=== PATIENT | female | born 1950 | race Caucasian/White ===

== ENCOUNTER → 2016-11-30 | Outpatient (CLI) | payer OTHER ==
--- NOTE | 2016-11-30 13:41 | DX ---
DEXA Bone Mineral Densitometry Clinical Indications: Postmenopausal, history of thoracic spinal tumor, screening for osteoporosis Comparison: None Technique: Bone Mineral Densitometry (BMD) by [employer] X-Ray Absorptiometry (DEXA) was performed utilizing the [employer] scanner. The lumbar spine was evaluated in the AP projection. The bilat eral hips and forearm were evaluated in the AP projection. Vertebral fracture assessment was also pe rformed. AP Lumbar Spine: The L1, L2, L3 and L4 vertebral bodies were evaluated. BMD: 1.448 gm/cm2 T-score: 2.0 SD Z-score: 2.9 SD AP Left Hip: Neck BMD: 1.085 gm/cm2 T-score: 0.3 SD Z-score: 1.4 SD AP Right Hip: Neck BMD: 1.125 gm/cm2 T-score: 0.6 SD Z-score: 1.7 SD AP Left Forearm, 11/01: BMD: 0.820 gm/cm2 T-score: -0.6 SD Z-score: 1.0 SD Vertebral Fracture Assessment: No significant fracture deformity. Degenerative spurring in the lumba r spine likely increases lumbar BMD. Conclusion: Considering the lowest measured site, the patient is normal and at low risk for fracture . The ten year FRAX risk for any major osteoporotic fracture is 10.1% and for a hip fracture is 0.3%. Any bone loss in this patient is probably related to aging or estrogen deficiency. To prevent osteoporosis and to promote the patient's bone density, the following recommendations shou ld be considered: 1. Pursue a regular regimen of weightbearing and muscle strengthening exercises in order to reduce t he risk of falls and fractures (as tolerated by the patient's general medical condition). 2. Ensure that daily dietary calcium uptake is maximized. 3. Consider checking the serum vitamin D level. Ensure that intake of vitamin D is 600 IU per day (fo r all ages through 70) . 4. Consider follow-up DEXA scan in two years to assess the rate of bone loss in this patient.
== END ==
LOC: BRMIMAGING 11:00
PROVIDERS: ATTEND Internal Medicine
DX: Z13.820 Encounter for screening for osteoporosis (principal); Z78.0 Asymptomatic menopausal state

== ENCOUNTER → 2017-04-13 | Outpatient (CLI) | payer OTHER | LOC: CIMAGING 10:51 | DX: Z12.31 Encounter for screening mammogram for malignant neoplasm of breast (principal) | CPT/HCPCS: G0202 ==

== ENCOUNTER → 2017-10-16 | Outpatient (CLI) | payer OTHER | LOC: CIMAGING 16:34 | PROVIDERS: ATTEND Allergy & Immunology | DX: R09.89 Other specified symptoms and signs involving the circulatory and respiratory systems (principal); R07.9 Chest pain, unspecified | CPT/HCPCS: 71020-PO ==

== ENCOUNTER → 2017-11-20 | Outpatient (CLI) | payer OTHER | LOC: CIMAGING 10:46 | PROVIDERS: ATTEND Internal Medicine | DX: J40 Bronchitis, not specified as acute or chronic (principal) | CPT/HCPCS: 71046-PO ==

== ENCOUNTER → 2018-04-19 | Outpatient (CLI) | payer OTHER | LOC: CIMAGING 09:53 | PROVIDERS: ATTEND Internal Medicine | DX: Z12.31 Encounter for screening mammogram for malignant neoplasm of breast (principal) ==

== ENCOUNTER → 2019-02-07 | Outpatient (CLI) | payer OTHER | LOC: CIMAGING 10:25 | PROVIDERS: ATTEND Internal Medicine | DX: J98.4 Other disorders of lung (principal); R05 Cough; J45.909 Unspecified asthma, uncomplicated | CPT/HCPCS: 71046-PO ==